=== PATIENT | male | born 1965 | race Caucasian/White ===

== ENCOUNTER 2023-03-06 10:33 | Outpatient (OUT) | payer OTHER, SELFPAY ==
[2023-03-06 11:11] LABS: Basophils Percent Auto 0.6 % (0.2-2.0); Eosinophils Absolute Auto 0.1 10^3/uL (0.0-0.7); Eosinophils Percent Auto 1.1 % (0.9-7.0); Hematocrit 47.2 % (42.0-54.0); Hemoglobin 16.3 g/dL (14.0-18.0); Immature Granulocytes Abs Auto 0.02 10^3/uL (0.00-0.03); Immature Granulocytes Pct Auto 0.3 % (0.0-0.5); Lymphocytes Absolute Auto 1.5 10^3/uL (1.2-3.8); Lymphocytes Percent Auto 20.9 % (20.5-60.0); Mean Corpuscular HGB Conc 34.5 g/dL (29.9-35.2); Mean Corpuscular Hemoglobin 30.8 pg (25.9-34.0); Mean Corpuscular Volume 89.1 fL (80.0-94.0); Monocytes Absolute Auto 0.6 10^3/uL (0.3-0.8); Monocytes Percent Auto 8.1 % (1.7-12.0); Neutrophils Absolute Auto 4.8 10^3/uL (1.4-6.5); Platelet Count 250 10^3/uL (150-450); Red Cell Distribution Width 11.9 % (11.0-15.0)
[2023-03-06 11:39] LABS: Alanine Aminotransferase 53 U/L (16-63); Alkaline Phosphatase 72 U/L (46-116); Anion Gap 12.5; Aspartate Amino Transferase 28 U/L (15-37); BUN Creatinine Ratio 20.6; Bilirubin Total 0.9 mg/dL (0.2-1.0); Calcium 9.6 mg/dL (8.5-10.1); Carbon Dioxide 26.5 mmol/L (21.0-32.0); Chloride 105 mmol/L (98-107); Chol HDL Ratio 3.1; Cholesterol 146 mg/dL (<=200); Estimated GFR (African America >60 (>=60); Estimated GFR (Non-African Ame >60 (>=60); Globulin 3.9 g/dL; Glucose 107 mg/dL (74-106); HDL Cholesterol 47 mg/dL (40-60); LDL Cholesterol Calculated 84.6 mg/dL; Sodium 140 mmol/L (136-145); Total Protein 7.9 g/dL (6.4-8.2); Triglycerides 72 mg/dL (<=150); VLDL CHOLESTEROL 14.4 mg/dL
== END 2023-03-06 10:34 | disposition home or self-care (01) ==
LOC: LAB 10:35
PROVIDERS: PCP Internal Medicine; Visit Provider Internal Medicine
DX: Z00.00 Encounter for general adult medical examination without abnormal findings (principal)
CPT/HCPCS: 36415; 80053; 80061; 85025

== ENCOUNTER 2025-01-18 10:53 | Outpatient (OUT) | payer OTHER, SELFPAY ==
--- NOTE | 2025-01-18 | XR_ITS ---
[address] [address] Patient Name: IRMA HAYES MRN: [id number] date: 1965 Sex: M Assigned Patient Location: RAD Current Patient Location: [facility] Accession/Order Number: [id number] Exam Date: 01/18/2025 11:05 Report Date: 01/18/2025 12:39 At the request of: MICK LEE DO Procedure: XR knee LT 4V 4 views left knee plain film COMPARISON: None HISTORY: Chronic left knee pain ACUTE FINDINGS: No acute findings DEGENERATIVE CHANGE: Unremarkable SOFT TISSUE FINDINGS: Unremarkable JOINT EFFUSION: None POSTOP CHANGES: None BONE MINERALIZATION: Adequate XR/XR knee LT 4V IMPRESSION: No acute findings Impression dictated by: Rusty Lipscomb M.D. 01/18/2025 12:39 PM Dictation Location: [place] [address] Electronically authenticated by: [id number] Y Date: 01/18/2025 12:39
--- OUTSIDE RECORDS SUMMARY | 2025-01-18 11:03 | XMS_ITS | Encounter Summary ---
Author Organization [facility] Address [address] [place] [id number] Care Team Providers Care Entry Level Finance Name Role Phone Michael Preciado DO Primary Care Provider No, Referral Unavailable Unavailable Jaskaran Stratton MD Unavailable [phone] Source Comments In the event this information is protected by the Federal Confidentiality of Alcohol and Drug AbusePatient Records regulations: The Federal rules restrict any use of the information to criminally investigate or prosecute any alcohol or drug abuse patient.[facility] Encounter Details Date Type Department Care Team (Late st Contact Info) Description 12/02/2024 Results Follow-Up Urology [address] [id number] Rachel López APRN.[facility] [address] [place] [address] Social History Tobacco Use Types Packs/Day Years Used Date Smoking Tobacco: Never Smokeless Tobacco: Former Quit: 2006 Alcohol Use Standard Drinks/Week Comments Yes 0 (1 standard drink = 0.6 oz pure alcohol) 3-4 beers/day (stopped 01/17/2017) Overall Financial Resource Strain (CARDIA) Answe r Date Recorded How hard is it for you to pa y for the very basics like food, housing, medical care, and heating? Not hard at all 02/04/2020 PHQ-2 Answer Date Recorded PHQ-2 score 0 11/07/2018 Hunger Vital Sign Answer Date Recorded Within the past 12 months, y ou worried that your food would run out before you got the money to buy more. Never true 02/04/20 20 Within the past 12 months, t he food you bought just didn't last and you didn't have money to get more. Never true 02/04/2020 PRAPARE - Transportation Answer Date Re corded In the past 12 months, has l ack of transportation kept you from medical appointments or from getting medications? No 01/25 In the past 12 months, has l ack of transportation kept you from meetings, work, or from getting things needed for daily living? No 02/04/2020 Area Deprivation Index Answer Date Deondre rded National Score (1-100), lower number is lower ri sk 63 09/27/2022 State Score (1-10), lower number is lower risk 4 09/27/2022 Data from: https://www.neighborhoodatlas.medicine.[facility].edu/. Last address used for calculation [address] [address] 09/27/2022 Sex and Gender Information Value Date Recorded Sex Assigned at Not on file Legal Sex Male 2:00 PM EDT Gender Identity Not on file Sexual Orientation Not on file documented as of this encounter Functional Status * Are you deaf or do you have serious difficulty hearing? Answer Date of Assessment Author No 02/07/2020 1:00 PM EDT Bryant Nova RN * Are you blind or do you have serious difficulty seeing, even when wearing glasses? Answer Date of Assessment Author No 02/07/2020 1:00 PM EDT Bryant Nova RN * Do you have serious difficulty walking or climbing stairs? Answer Date of Assessment Author No 02/07/2020 1:00 PM EDT Bryant Nova RN * Do you have difficulty dressing or bathing? Answer Date of Assessment Author No 02/07/2020 1:00 PM EDT Bryant Nova RN * Because of a physical, mental, or emotional condition, do you have difficulty doing errands alone such as visiting a doctor's office or shopping? Answer Date of Assessment Author No 02/07/2020 1:00 PM EDT Bryant Nova RN documented as of this encounter Mental Status * Because of a physical, mental, or emotional condition, do you have serious difficulty concentrating, remembering, or making decisions? Answer Entry Date Author No 02/07/2020 1:00 PM EDT Bryant Nova RN documented in this encounter Plan of Treatment Upcoming Encounters Date Type Department Care Team (Late st Contact Info) Description 09/07/2025 9:30 AM EDT Office Visit Urology [address] [address] Rachel López APRN.[facility] [address] [place] [address] Prostate Cancer Follow Up documented as of this encounter Goals Goal Patient Goal Type Associated Problems Recent Progress Patient-Stated? Author Blood Pressure < 130/80 Blood Pressure 114/76(2024 2:17 PM EDT) No Jaskaran Stratton MD documented as of this encounter Visit Diagnoses Not on filedocumented in this encounter Care Teams Entry Level Finance Relationship Specialty Start Date End Date Michael Preciado DO PCP - General Internal Medicine 09/29/15 No, Referral Referring 11/03/18 Jaskaran Stratton MD [address] [place] [address] Vascular Medicine 11/07/20 documented as of this encounter
--- OUTSIDE RECORDS SUMMARY | 2025-01-18 11:03 | XMS_ITS | Encounter Summary ---
Author Organization [facility] Address [address] [place], [place] [id number] Care Team Providers Care Hiv Counselor Name Role Phone OzzyMichael Primary Care Provider [phone] No, Referral Unavailable Unavailable Jaskaran Stratton MD Unavailable [phone] Source Comments In the event this information is protected by the Federal Confidentiality of Alcohol and Drug AbusePatient Records regulations: The Federal rules restrict any use of the information to criminally investigate or prosecute any alcohol or drug abuse patient.[facility] Encounter Details Date Type Department Care Team (Late st Contact Info) Description 06/27/2022 [place] [address] Provider, [facility] MRI Screening Questionnaire Completion Required Social History Tobacco Use Types Packs/Day Years [...] (1-100), lower number is lower ri sk Not on file 05/03/2020 State Score (1-10), lower number is lower risk N ot on file 05/03/2020 Data from: https://www.neighborhoodatlas.medicine.[facility].edu/. Last address used for calculation Not on file 05/03/2020 Sex and Gender Information Value Date Recorded [...] 9:30 AM EDT Office Visit Urology [address] [address] Rachel López APRN.[facility] [address] [place] [address] Prostate Cancer Follow Up documented as of this encounter Visit Diagnoses Not on filedocumented in this encounter Care Teams Hiv Counselor Relationship Specialty Start Date End Date Michael Preciado DO PCP - General Internal Medicine 09/29/15 No, Referral Referring 11/03/18 Jaskaran Stratton MD [address] [place] [address] Vascular Medicine 11/07/20 documented as of this encounter
--- OUTSIDE RECORDS SUMMARY | 2025-01-18 11:03 | XMS_ITS | Clinical Summary ---
Author Organization [employer] [facility] Address [id number] [address] [place] [address] Care Team Providers Care Package Line Operator Name Role Phone Michael Preciado Primary Care Provider [phone] Allergies No known active allergies Medications aspirin 81 mg Take 81 mg by mouth daily. Active atorvastatin (LIPITOR) 10 mg tablet Take 10 mg by mouth daily. Active losartan (COZAAR) 25 mg tablet Take 25 mg by mouth daily. Active gabapentin (NEURONTIN) 300 mg capsule Take 300 mg by mouth 3 (three) times a day. Active cyclobenzaprine (FLEXERIL) 5 mg tablet Take 10 mg by mouth 3 (three) times a day as needed for muscle spasms. Active famotidine (PEPCID) 10 mg tablet Take 10 mg by mouth 2 (two) times a day. Active Immunizations Immunization Administration Dates Next Due Tdap 07/18/2021 Social History Tobacco Use Types Packs/Day Years Used Date Smoking Tobacco: Never Smokeless Tobacco: Never Alcohol Use Standard Drinks/Week Comments Yes 0 (1 standard drink = 0.6 oz pur e alcohol) Childcare Answer Date Recorded Childcare Unknown 11/04/2018 Employment Answer Date Recorded Employment Unknown 11/04/2018 Sex and Gender Information Value Date Recorded Sex Assigned at Not on file Legal Sex Male 8:38 PM EDT Gender Identity Not on file Sexual Orientation Not on file Last Filed Vital Signs Vital Sign Reading Time Taken Comments Blood Pressure 136/94 07/18/2021 2:02 PM EST Pulse 121 07/18/2021 2:02 PM EST Temperature 36.6 C (97.8 F) 07/18/2021 2:02 PM EST Respiratory Rate 16 07/18/2021 2:02 PM EST Oxygen Saturation 97% 07/18/2021 2:02 PM EST Inhaled Oxygen Concentration - - Weight 86.2 kg (190 lb) 07/18/2021 2:02 PM EST Height 172.7 cm (5' 8 ) 07/18/2021 2:02 PM EST Body Mass Index 28.89 07/18/2021 2:02 PM EST Plan of Treatment Not on file Medical Devices Not on file Insurance [employer] Care Teams Package Line Operator Relationship Specialty Start Date End Date Michael Preciado DO [address] [place] [id number] PCP - General Internal Medicine 07/18/21
--- OUTSIDE RECORDS SUMMARY | 2025-01-18 11:03 | XMS_ITS | Encounter Summary ---
Author Organization [facility] Address [address] [place], [place] [id number] Care Team Providers Care Supervisor Labor Gang Name Role Phone OzzyMichael Gordon OLMOS Primary Care Provider [phone] No, Referral Unavailable Unavailable Jaskaran Stratton MD Unavailable [phone] Source Comments In the event this information is protected by the Federal Confidentiality of Alcohol and Drug AbusePatient Records regulations: The Federal rules restrict any use of the information to criminally investigate or prosecute any alcohol or drug abuse patient.[facility] Encounter Details Date Type Department Care Team (Late st Contact Info) Description 07/03/2022 Patient Msg [facility] [address] [place] [address] Provider, [facility] appointments Social History Tobacco Use Types Packs/Day Years [...] ot on file 05/03/2020 Data from: https://www.neighborhoodatlas.medicine.[facility]/. Last address used for calculation Not on [...] 9:30 AM EDT Office Visit Urology [address] [address] Rachel López APRN.[facility] [address] [place] [address] Prostate Cancer Follow Up documented as of this encounter Visit Diagnoses Not on filedocumented in this encounter Care Teams Supervisor Labor Gang Relationship Specialty Start Date End Date Michael Preciado DO PCP - General Internal Medicine 09/29/15 No, Referral Referring 11/03/18 Jaskaran Stratton MD [address] [place] [address] Vascular Medicine 11/07/20 documented as of this encounter
--- OUTSIDE RECORDS SUMMARY | 2025-01-18 11:03 | XMS_ITS | Clinical Summary ---
Author Organization [facility] Address [address] [place], [place] [id number] Care Team Providers Care Broke Beater Machine Operator Name Role Phone OzzyMichael Primary Care Provider [phone] No, Referral Unavailable Unavailable Jaskaran Stratton MD Unavailable [phone] Allergies No known active allergies Medications acetaminophen (TYLENOL) 500 mg tablet Take 1,000 mg by mouth every 8 hours as needed. Active aspirin 81 mg chewable tablet Take 1 tablet by mouth once daily. 30 tablet 6 05/14/20 17 Active atorvastatin (LIPITOR) 80 mg tablet Take 1 tablet by mouth daily at bedtime. 30 tablet 6 05/14/20 17 Active cyclobenzaprine (FLEXERIL) 10 mg tablet Take 0.5-1 tablets by mouth twice daily as needed. 60 tablet 5 11/08/19 19 Active losartan (COZAAR) 25 mg tablet Take 25 mg by mouth once daily. Active famotidine (PEPCID) 40 mg tablet Take 40 mg by mouth once daily. 10/14/19 21 Active gabapentin (NEURONTIN) 300 mg capsuleIndication s:Radiculopathy of lumbar region Take 2 capsules by mouth three times daily for 60 days. Patient was titrated up to this dosing per Dr. Islas recommendations. 180 capsule 1 08/02/19 23 Active Additional Information Patient taking differently:600 mg ORAL DIRECTED, Patient was titrated up to this dosing per Dr. Islas recommendations.300mg q a.m. and 600mg q hs, Reason: Dosage Adjustment, Reported on 12/15/2024 meloxicam (MOBIC) 15 mg tablet TAKE ONE TABLET BY MOUTH ONCE DAILY NEEDED 30 tablet 2 11/15/19 23 Active DULoxetine (CYMBALTA) 30 mg capsule Take by mouth every 24 hours. 12/12/19 23 Active sildenafil (VIAGRA) 100 mg tabletIndications :Erectile dysfunction following radical prostatectomy TAKE 1/2 TO 1 TABLET BY MOUTH 30-60 MINUTES PRIOR TO INTERCOURSE ON AN EMPTY STOMACH *NO FOOD OR ALCOHOL. Do not take in combination with prior Cialis prescription 30 tablet 4 12/10/19 24 Active Tadalafil (CIALIS) 20 mg tabletIndications :Erectile dysfunction following radical prostatectomy Take 1 tablet by mouth as needed. 1-2 hours before sexual intercourse. 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 Dissection of carotid artery 01/30/2017 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 Renovascular hypertension 01/29/2017 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 56 Myocardial Infarction Brother 2 Stent Ischemic Heart Disease Brother 3 Stent Ischemic Heart Disease Brother 4 sudd enly, autopsy reported showed blockage, under stress in [employer] unknown Father d. 93 Natural reasons (unknown) Mother d. age 87 Heart Other specifics not kn own, late 30s-40, told she should not have more children, daughter of brother (4) Dementia Sister 1 Fibromyalgia Sister 2 Relation Status Comments Brother 1 Brother 2 Alive Brother 3 Alive Brother 4 Father Mother Other Sister 1 Alive Sister 2 Alive Social History Tobacco Use Types Packs/Day Years Used Date Smoking Tobacco: Never Smokeless Tobacco: Former Quit: 2006 Tobacco Cessation:Counseling Given: Not Answered Alcohol Use Standard Drinks/Week Comments Yes 0 (1 standard drink = 0.6 oz pur e alcohol) occ Overall Financial Resource Strain (CARDIA) Answe r [...] is lower risk 4 09/27/2022 Data from: https://www.neighborhoodatlas.medicine.[facility].edu/. Last address used for calculation [address] 09/27/2022 Sex and Gender Information Value Date Recorded Sex Assigned at Not on file Legal Sex Male 2:00 PM EDT Gender Identity Not on file Sexual Orientation Not on file Last Filed Vital Signs Vital Sign Reading Time Taken Comments Blood Pressure 114/76 12/15/2024 2:17 PM EDT Pulse 106 12/15/2024 2:17 PM EDT Temperature 36.6 C (97.9 F) 12/15/2024 2:17 PM EDT Respiratory Rate 16 12/15/2024 2:17 PM EDT Oxygen Saturation 95% 12/15/2024 2:17 PM EDT Inhaled Oxygen Concentration - - Weight 95 kg (209 lb 7 oz) 12/15/2024 2:17 PM ED T Height 172.7 cm (5' 8 ) 09/02/2024 1:46 PM EDT Body Mass Index 31.84 09/02/2024 1:46 PM EDT Plan of Treatment Upcoming Encounters Date Type Department Care Team (Late st Contact Info) Description 09/07/2025 9:30 AM EDT Office Visit Urology [address] [address] Rachel López APRN.WARRANTY MANAGER [address] [id number] Prostate Cancer Follow Up Health Maintenance Due Date Last Done Comments Annual PCP Team Chronic Dise ase Visit 1981 Anxiety Screening [address] Colonography 2008 Fecal Occult Blood 2008 Sigmoidoscopy 2008 Pneumococcal Vaccine: 50+ (1 of 1 - PCV) 2013 Shingrix Vaccine (1 of 2) 2013 Cologuard (FIT-DNA) 09/22/2021 09/22/2018 Colonoscopy 06/27/2022 06/27/2021 Colorectal Cancer Screening 06/27/2022 Influenza Vaccine (#1) 2025 Diabetes Screening 12/02/2027 12/01/2024, 1 07/17/2021, 02/04/2020, Additional history exists Lipid Screening 12/01/2029 12/01/2024, 12/05/2021, 03/27/2018, Additional history exists Prostate Cancer Screening Discussion 12/01/2029 12/01/2024, 09/02/2024, 06/29/2024, Additional history exists DTaP,Tdap,Td Vaccine (2 - Td or Tdap) 07/18/2031 07/18/2021 RSV Vaccine (1 - 1-dose 75+ series) 2038 Hepatitis C Screening Completed 10/16/2018, 019 HIV Screening Completed 10/17/2018 Goals Goal Patient Goal Type Associated Problems Recent Progress Patient-Stated? Author Blood Pressure < 130/80 Blood Pressure 114/76(2024 2:17 PM EDT) Jaskaran Coy MD Procedures Procedure Name Priority Date/Time Associated Diagnosis Comments LIPID PANEL, FASTING Routine 12/01/2024 9:18 AM EDT Well adult exam CBC + DIFF Routine 12/01/2024 9:18 AM EDT Well adult exam COMPREHENSIVE METABOLIC PANEL Routine 12/01/2024 9:18 AM EDT Well adult exam PSA/PROSTSPECAG DIAG Routine 12/01/2024 9:18 AM EDT Rising PSA following treatment for malignant neoplasm of prostate COLONOSCOPY DIAGNOSTIC Routine 10:55 AM EST BRBPR (bright red blood per rectum) HIV 1/2 COMBO WITH REFLEX TO DIFFERENTIATION Routine 10/17/2018 4:11 AM EDT HEP REMOTE PANEL BL Routine 10/16/2018 3 :54 AM EDT from Last 3 Months or Most Recently Relevant to Health Maintenance Results * PROSTATE-SPECIFIC ANTIGEN DIAGNOSTIC (12/01/2024 9:18 AM EDT) PSA 0.06 <2.60 ng/mL 12/01/2024 8:57 PM EDT [facility] Comment:Total PSA test metho dology used is the Electrochemiluminescence Immunoassay by [employer]. Total PSA values by differing methodologies cannot be interchanged. Blood BLOOD SPECIMEN / Unknown Venipuncture / Unknown 12/01/2024 9:18 AM EDT 12/01/2024 9:18 AM EDT us Rachel Maribel MANAGER PART.WARRANTY MANAGER LABORATORY Final Result [facility] [address] [facility] [address] [place] [address], [place] * (ABNORMAL) LIPID PANEL, FASTING (12/01/2024 9:18 AM EDT) Cholesterol, Total 145 <200 mg/dL 12/01/2024 5:07 PM EDT [facility] Comment: <200 mg/dL, Desirable 200-239 mg/dL, Borderline high >239 mg/dL, High Triglyceride 138 <150 mg/dL 12/01/2024 5:07 PM EDT [facility] Comment: <150 mg/dL, Normal 150-199 mg/dL, Borderline high 200-499 mg/dL, High >499 mg/dL, Very high HDL Cholesterol 39(L) >39 mg/dL 5:07 PM T [facility] Comment: 40-59 mg/dL, Acceptable >59 mg/dL, High: Negative risk factor for coronary heart disease <40 mg/dL, Low: Positive risk factor for coronary heart disease LDL Cholesterol, Calculated 82 <100 mg/dL 12/01/2024 5:07 PM T [facility] Comment: <100 mg/dL, Optimal 100-129 mg/dL, Near optimal/above optimal 130-159 mg/dL, Borderline high 160-189 mg/dL, High >189 mg/dL, Very high Secondary prevention optimal LDL Cholesterol levels are recommended to be <70 mg/dL LDL cholesterol is calculated using the Guzman-NIH equation. Non HDL Cholesterol 106 <130 mg/dL 12/01/2024 5:07 PM EDT [facility] Comment: <130 mg/dL, Optimal 130-159 mg/dL, Near optimal/above optimal 160-189 mg/dL, Borderline high 190-219 mg/dL, High >219 mg/dL, Very high Secondary prevention optimal non HDL Cholesterol levels are recommended to be <100 mg/dL VLDL Cholesterol 21 <30 mg/dL 12/02/19 25 5:07 PM T [facility] TC:HDL Ratio 3.72 <5.10 12/01/2024 5:07 PM EDT [facility] LDL:HDL Ratio 2.10 <2.54 12/01/2024 5:07 PM EDT [facility] Comment: Reference: 1. National Cholesterol Education Program ATP III Guideline At-A-Glance Quick Desk Reference: National Heart, Lung, and Blood [place]anna. National Institutes of Health. 2001: NIH Publication No. 01-3305. 2. An International Atherosclerosis Society position paper: global recommendations for the management of dyslipidemia: executive summary, Atherosclerosis. 2014: 232(2):410-413. Fasting Time 12 hrs 12/01/2024 5:07 PM EDT [facility] Blood BLOOD SPECIMEN / Unknown Venipuncture / Unknown 12/01/2024 9:18 AM EDT 12/01/2024 9:18 AM EDT Michael Preciado DO LABORATORY Final Result [facility] [address] [facility] [address] [place] [address], [facility] [address] [place] [address] * (ABNORMAL) COMPREHENSIVE METABOLIC PANEL (12/01/2024 9:18 AM EDT) Protein, Total 7.5 6.3 - 8.0 g/dL 12/01/2024 11:55 AM EDT [facility] Albumin 4.5 3.9 - 4.9 g/dL 12/01/2024 11:55 AM EDT [facility] Calcium, Total 9.9 8.5 - 10.2 mg/dL 12/01/2024 11:55 AM EDT [facility] Bilirubin, Total 0.9 0.2 - 1.3 mg/dL 12/01/2024 11:55 AM EDT [facility] Alkaline Phosphatase 73 38 - 113 U/L 12/01/2024 11:55 AM EDT [facility] AST 25 14 - 40 U/L 12/01/2024 11:55 AM [facility] ALT 37 10 - 54 U/L 12/01/2024 11:55 AM [facility] Glucose 116(H) 74 - 99 mg/dL 12/01/2024 11:55 AM [facility] Comment: The [place] Diabetes Association (ADA) provides guidance for cutoff values for fasting glucose and random glucose. The ADA defines fasting as no caloric intake for at least 8 hours. Fasting plasma glucose results between 100 to 125 mg/dL indicate increased risk for diabetes (prediabetes). Fasting plasma glucose results greater than or equal to 126 mg/dL meet the criteria for diagnosis of diabetes. In the absence of unequivocal hyperglycemia, results should be confirmed by repeat testing. In a patient with classic symptoms of hyperglycemia or hyperglycemic crisis, random plasma glucose results greater than or equal to 200 mg/dL meet the criteria for diagnosis of diabetes. Reference: Standards of Medical Care in Diabetes 2016, [place] Diabetes Association. Diabetes Care. 2016.39(Suppl 1). BUN 13 9 - 24 mg/dL 12/01/2024 11:55 AM [facility] Creatinine 0.91 0.73 - 1.22 mg/dL 12/01/2024 11:55 AM [facility] Sodium 139 136 - 144 mmol/L 12/01/2024 11:55 AM [facility] Potassium 4.1 3.7 - 5.1 mmol/L 12/01/2024 11:55 AM [facility] Chloride 105 98 - 107 mmol/L 12/01/2024 11:55 AM [facility] CO2 23 22 - 30 mmol/L 12/01/2024 11:55 AM [facility] Anion Gap 11 8 - 15 mmol/L 12/01/2024 11:55 AM [facility] Estimated Glomerular Filtration Rate 96 >=60 mL/min/1. 73m 12/01/2024 11:55 AM [facility] Comment:Estimated Glomerular Filtration Rate (eGFR) is calculated using the 2020 CKD-EPI creatinine equation. This equation utilizes serum creatinine, sex, and age as parameters. The creatinine assay has traceable calibration to isotope dilution- mass spectrometry. Refer to KDIGO guidelines for clinical interpretation. In patients with unstable renal function, e.g. those with acute kidney injury, the eGFR may not accurately reflect actual GFR. Blood BLOOD SPECIMEN / Unknown Venipuncture / Unknown 12/01/2024 9:18 AM EDT 12/01/2024 9:18 AM EDT Michael Preciado DO LABORATORY Final Result [facility] [address] [place] [address] * COMPLETE BLOOD COUNT AND DIFFERENTIAL (12/01/2024 9:18 AM EDT) WBC 6.39 3.70 - 11.00 k/uL 12/01/2024 9:22 AM EDT [facility] RBC 5.41 4.20 - 6.00 m/uL 12/01/2024 9:22 AM EDT [facility] Hemoglobin 16.6 13.0 - 17.0 g/dL 12/01/2024 9:22 AM EDT [facility] Hematocrit 47.5 39.0 - 51.0 % 12/01/2024 9:22 AM EDT [facility] MCV 87.8 80.0 - 100.0 fL 12/01/2024 9:22 AM EDT [facility] MCH 30.7 26.0 - 34.0 pg 12/01/2024 9:22 AM EDT [facility] MCHC 34.9 30.5 - 36.0 g/dL 12/01/2024 9:22 AM EDT [facility] RDW-CV 12.2 11.5 - 15.0 % 12/01/2024 9:22 AM EDT [facility] Platelet Count 214 150 - 400 k/uL 12/01/2024 9:22 AM EDT [facility] MPV 9.5 9.0 - 12.7 fL 12/01/2024 9:22 AM EDT [facility] Neutrophils % 64.0 % 12/01/2024 9:22 AM EDT [facility] Abs Neut 4.09 1.45 - 7.50 k/uL 12/01/2024 9:22 AM EDT [facility] Lymphocytes % 21.6 % 12/01/2024 9:22 AM EDT [facility] Abs Lymph 1.38 1.00 - 4.00 k/uL 12/01/2024 9:22 AM EDT [facility] Monocytes % 10.5 % 12/01/2024 9:22 AM EDT [facility] Abs Ross 0.67 <0.87 k/uL 12/01/2024 9:22 AM EDT [facility] Eosinophils % 2.7 % 12/01/2024 9:22 AM EDT [facility] Abs Eosin 0.17 <0.46 k/uL 12/01/2024 9:22 AM EDT [facility] Basophils % 0.6 % 12/01/2024 9:22 AM EDT [facility] Abs Baso 0.04 <0.11 k/uL 12/01/2024 9:22 AM EDT [facility] Immature Granulocytes % 0.6 % 12/01/2024 9:22 AM EDT [facility] Abs Immature Gran 0.04 <0.10 k/uL 025 9:22 AM EDT [facility] NRBC 0.0 /100 WBC 12/01/2024 9:22 AM EDT [facility] Absolute nRBC <0.01 <0.01 k/uL 12/01/2024 9:22 AM EDT [facility] Diff Type Auto 12/01/2024 9:22 AM EDT [facility] Blood BLOOD SPECIMEN / Unknown Venipuncture / Unknown 12/01/2024 9:18 AM EDT 12/01/2024 9:18 AM EDT Michael Gordon Ozzy [facility] LABORAT[facility] Final Result [facility] [address] [place] [address] * COLONOSCOPY DIAGNOSTIC (06/27/2021 10:55 AM EST) Anatomical Region Laterality Modality Other 06/27/2021 10:5 5 AM EST Narrative 06/27/2021 11:22 AM EST A31 Gastrointestinal Endoscopy Patient Name: Sylvester Burger Procedure Date: 06/27/2021 10:55 AM Date of : 1965 Admit Type: Outpatient Age: 56 Room: [place] [address] Gender: Male Note Status: Finalized Attending MD: Aneudy Douglass MD Procedure: Colonoscopy Indications: Hematochezia Providers: Aneudy Douglass MD Patient Profile: Refer to note in patient chart for documentation of history and physical. Last Colonoscopy: none. The patient's first colonoscopy is today. Referring Physician: Selena Haq NP (Referring MD) Medicines: Midazolam 5 mg IV, Fentanyl 100 micrograms IV Complications: No immediate complications. Requesting Provider: Procedure: Pre-Anesthesia Assessment: - Prior to the procedure, a History and Physical was performed, and patient medications and allergies were reviewed. The patient is competent. The risks and benefits of the procedure and the sedation options and risks were discussed with the patient. All questions were answered and informed consent was obtained. Patient identification and proposed procedure were verified by the physician and the nurse in the pre-procedure area in the procedure room. Mental Status Examination: alert and oriented. Airway Examination: normal oropharyngeal airway and neck mobility. Respiratory Examination: clear to auscultation. CV Examination: normal. Prophylactic Antibiotics: The patient does not require prophylactic antibiotics. Prior Anticoagulants: The patient has taken no previous anticoagulant or antiplatelet agents. ASA Grade Assessment: II - A patient with mild systemic disease. After reviewing the risks and benefits, the patient was deemed in satisfactory condition to undergo the procedure. The anesthesia plan was to use moderate sedation / analgesia (conscious sedation). Immediately prior to administration of medications, the patient was re-assessed for adequacy to receive sedatives. The heart rate, respiratory rate, oxygen saturations, blood pressure, adequacy of pulmonary ventilation, and response to care were monitored throughout the procedure. The physical status of the patient was re-assessed after the procedure. After I obtained informed consent, the scope was passed under direct vision. Throughout the procedure, the patient's blood pressure, pulse, and oxygen saturations were monitored continuously. The Colonoscope was introduced through the anus and advanced to 10 cm into the ileum. The colonoscopy was performed without difficulty. The patient tolerated the procedure well. The quality of the bowel preparation was good. The terminal ileum, the ileocecal valve, the appendiceal orifice and the rectum were photographed. Moderate Sedation: The administration of moderate sedation was initiated at 11:02 AM. Moderate (conscious) sedation was administered by the endoscopy nurse and supervised by the endoscopist. The following parameters were monitored: oxygen saturation, heart rate, blood pressure, and response to care. Findings: The perianal and digital rectal examinations were normal. The colon (entire examined portion) appeared normal. The terminal ileum appeared normal. Impression: - The entire examined colon is normal. - The examined portion of the ileum was normal. - No specimens collected. Estimated Blood Loss: Estimated blood loss: none. Recommendation: - Discharge patient to home (ambulatory). - Resume previous diet. - Continue present medications. - Repeat colonoscopy in 10 years for screening purposes. - Patient has a contact number available for emergencies. The signs and symptoms of potential delayed complications were discussed with the patient. Return to normal activities tomorrow. Written discharge instructions were provided to the patient. Procedure Code(s): --- Professional --- 56279, Colonoscopy, flexible; diagnostic, including collection of specimen(s) by brushing or washing, when performed (separate procedure) Diagnosis Code(s): --- Professional --- K92.1, Melena (includes Hematochezia) CPT copyright 2019 [place] [employer]. All rights reserved. The codes documented in this report are preliminary and upon deckhand review may be revised to meet current compliance requirements. Attending Participation: I personally performed the entire procedure. Scope In: 11:05:03 AM Scope Out: 11:19:25 AM MD Aneudy Gallegos MD 06/27/2021 11:21:51 AM This report has been signed electronically by Aneudy Douglass MD Number of Addenda: 0 Note Initiated On: 06/27/2021 10:55 AM Selena Haq ESTHER.WARRANTY MANAGER DIGESTIVE DISEASE Final Result * HIV 1 2 COMBO(AG/AB),WITH REFLEX TO DIFFERENTIATION (10/17/2018 4:11 AM EDT) HIV 12 Combo (Ag/Ab) Non Reactive Non Reactive 10/17/2018 5:48 PM EDT [facility] HIV 1/2 Ab Confirmatory Test Not Indicated 10/17/2018 5:48 PM EDT [facility] HIV Interpretation Negative 10/17/2018 5:48 PM EDT [facility] Comment: No evidence of HIV-1 or HIV-2 infection. Should recent infection be suspected, repeat testing may be considered 2-3 weeks after this draw. HIV Information: [place] Rev. Code 3701.243(E): This information has been disclosed to you from confidential records protected from disclosure by state law. You shall make no further disclosure of this information without the specific, written, and informed release of the individual to whom it pertains or as otherwise permitted by state law. A general authorization for the release of medical or other information is not sufficient for the purpose of the release of HIV test results or diagnoses. Blood specimen (specimen) BLOOD SPECIMEN / Unknown 10/17/2018 4:11 AM EDT 10/17/2018 4:12 AM EDT Marybeth Ariza MD LABORATORY Final Resu lt [facility] [address] [place] [address] [facility] [address] [place] [address] * HEP REMOTE PANEL BL (10/16/2018 3:54 AM EDT) Hep B Core Ab, Total Negative Negative 10/16/2018 12:58 PM EDT [facility] Hep C Antibody IA Negative Negative 10/16/2018 12:58 PM EDT [facility] HBsAg Negative Negative 10/16/2018 12:58 PM EDT [facility] ManagerComplete Hep B Surface Ab, Qual Negative Negative 10/16/2018 12:58 PM EDT [facility] Comment:NEGATIVE Blood specimen (specimen) BLOOD SPECIMEN / Unknown 10/16/2018 3:54 AM EDT 10/16/2018 3:56 AM EDT us Marybeth Ariza MD LABORATORY Final Resu lt [facility] [address] [place] [address] [facility] ManagerComplete [address] [place] [address] from Last 3 Months or Most Recently Relevant to Health Maintenance Insurance [employer] Care Teams Broke Beater Machine Operator Relationship Specialty Start Date End Date Michael Preciado DO PCP - General Internal Medicine 09/29/15 No, Referral Referring 11/03/18 Jaskaran Stratton MD [address] [place] [address] Vascular Medicine 11/07/20
--- OUTSIDE RECORDS SUMMARY | 2025-01-18 11:03 | XMS_ITS | Encounter Summary ---
Author Organization [facility] Address [address] [id number] Care Team Providers Care Strawberry Grower Name Role Phone Michael Preciado DO Primary Care Provider [phone] No, Referral Unavailable Unavailable Jaskaran Stratton MD Unavailable [phone] Source Comments In the event this information is protected by the Federal Confidentiality of Alcohol and Drug AbusePatient Records regulations: The Federal rules restrict any use of the information to criminally investigate or prosecute any alcohol or drug abuse patient.[facility] Encounter Details Date Type Department Care Team (Late st Contact Info) Description 02/03/2020 Surgical Case HOSP MAIN G090 [address] [id number] Eddie Magallon MD [address] [facility] [address] [place] [address] Social History Tobacco Use Types Packs/Day Years Used Date Smoking Tobacco: Never Smokeless Tobacco: Former Quit: 2006 Alcohol Use Standard Drinks/Week Comments No 0 (1 standard drink = 0.6 oz [...] things needed for daily living? No 02/04/2020 Sex and Gender Information Value Date Recorded Sex Assigned at Not on file Legal Sex Male 2:00 PM EDT Gender Identity Not on file Sexual Orientation Not on file COVID-19 Exposure Response Date Recorded In the last month, have you been in contact with someone who was confirmed or suspected to have Coronavirus / COVID-19? No / Unsure 02/03/2020 10:44 AM EDT documented as of this encounter Functional Status * Are you deaf or do you have serious difficulty hearing? Answer Date of Assessment Author No 10/17/2018 5:26 PM EDT Nhi Fonseca RN * Are you blind or do you have serious difficulty seeing, even when wearing glasses? Answer Date of Assessment Author No 10/17/2018 5:26 PM EDT Nhi Fonseca RN * Do you have serious difficulty walking or climbing stairs? Answer Date of Assessment Author No 10/17/2018 5:26 PM EDT Nhi Fonseca RN * Do you have difficulty dressing or bathing? Answer Date of Assessment Author No 10/17/2018 5:26 PM EDT Nhi Fonseca RN * Because of a physical, mental, or emotional condition, do you have difficulty doing errands alone such as visiting a doctor's office or shopping? Answer Date of Assessment Author No 10/17/2018 5:26 PM EDT Nhi Fonseca RN documented as of this encounter Mental Status * Because of a physical, mental, or emotional condition, do you have serious difficulty concentrating, remembering, or making decisions? Answer Entry Date Author No 10/17/2018 5:26 PM EDT Nhi Fonseca RN documented in this encounter Plan of Treatment Upcoming Encounters Date Type Department Care Team (Late st Contact Info) Description 09/07/2025 9:30 AM EDT Office Visit Urology [address] [id number] Rachel López APRN.[facility] [address] [place] [address] Prostate Cancer Follow Up documented as of this encounter Visit Diagnoses Not on filedocumented in this encounter Care Teams Strawberry Grower Relationship Specialty Start Date End Date Michael Preciado DO PCP - General Internal Medicine 09/29/15 No, Referral Referring 11/03/18 Jaskaran Stratton MD [address] [place] [address] Vascular Medicine 11/07/20 documented as of this encounter
--- OUTSIDE RECORDS SUMMARY | 2025-01-18 11:03 | XMS_ITS | Encounter Summary ---
Author Organization [facility] Address [address] [id number] Care Team Providers Care Band Lining Bander Name Role Phone OzzyMichael Gordon OLMOS Primary Care Provider No, Referral Unavailable Unavailable Jaskaran Stratton MD Unavailable [phone] Source Comments In the event this information is protected by the Federal Confidentiality of Alcohol and Drug AbusePatient Records regulations: The Federal rules restrict any use of the information to criminally investigate or prosecute any alcohol or drug abuse patient.[facility] Encounter Details Date Type Department Care Team (Late st Contact Info) Description 07/09/2022 Patient Msg Spine Spreckels [address] [phone] Provider, Cclupillo Spine Procedure Appointment Social History Tobacco Use Types Packs/Day Years [...] N ot on file 05/03/2020 Data from: https://www.neighborhoodatlas.medicine.[facility]/. Last address used for calculation Not on [...] 9:30 AM EDT Office Visit Urology [address] [address] Rachel López APRN.[employer] [address] [place] [address] Prostate Cancer Follow Up documented as of this encounter Visit Diagnoses Not on filedocumented in this encounter Care Teams Band Lining Bander Relationship Specialty Start Date End Date Michael Preciado DO PCP - General Internal Medicine 09/29/15 No, Referral Referring 11/03/18 Jaskaran Stratton MD [address] [place] [address] Vascular Medicine 11/07/20 documented as of this encounter
--- OUTSIDE RECORDS SUMMARY | 2025-01-18 11:03 | XMS_ITS | Encounter Summary ---
Author Organization [facility] Address [address] [place] [address] Care Team Providers Care Senior Packaging Engineer Name Role Phone OzzyMichael Primary Care Provider No, Referral Unavailable Unavailable Jaskaran Stratton MD Unavailable [phone] Source Comments In the event this information is protected by the Federal Confidentiality of Alcohol and Drug AbusePatient Records regulations: The Federal rules restrict any use of the information to criminally investigate or prosecute any alcohol or drug abuse patient.[facility] Encounter Details Date Type Department Care Team (Late st Contact Info) Description 06/18/2022 Patient Msg Spine Medicine [address] [place] [phone] Vijay Islas, DO [address] [place] [address] MRI lumbar with contrast Social History Tobacco Use Types Packs/Day Years [...] N ot on file 05/03/2020 Data from: https://www.neighborhoodatlas.medicine.[facility].edu/. Last address used for calculation Not on [...] 9:30 AM EDT Office Visit Urology [address] [phone] Rachel López APRN.[address] [address] Prostate Cancer Follow Up documented as of this encounter Visit Diagnoses Not on filedocumented in this encounter Care Teams Senior Packaging Engineer Relationship Specialty Start Date End Date Michael Preciado DO PCP - General Internal Medicine 09/29/15 No, Referral Referring 11/03/18 Jaskaran Stratton MD [address] [place] [address] Vascular Medicine 11/07/20 documented as of this encounter
--- OUTSIDE RECORDS SUMMARY | 2025-01-18 11:03 | XMS_ITS | Clinical Summary ---
Author Organization [facility] Address [address] [facility], [address] [place] [address] Care Team Providers Care Claim Processor Name Role Phone Unavailable Primary Care Provider Unavailabl e Social History Tobacco Use Types Packs/Day Years Used Date Smoking Tobacco: Never Assessed Sex and Gender Information Value Date Recorded Sex Assigned at Not on file Legal Sex Male 2:04 PM EST Gender Identity Not on file Sexual Orientation Not on file Plan of Treatment Not on file Insurance [facility]
--- OUTSIDE RECORDS SUMMARY | 2025-01-18 11:03 | XMS_ITS | Encounter Summary ---
Author Organization [facility] Address [address] [place], [place] [phone] Care Team Providers Care Tax Lawyer Name Role Phone Michael Preciado DO Primary Care Provider [phone] No, Referral Unavailable Unavailable Jaskaran Stratton MD Unavailable [phone] Source Comments In the event this information is protected by the Federal Confidentiality of Alcohol and Drug AbusePatient Records regulations: The Federal rules restrict any use of the information to criminally investigate or prosecute any alcohol or drug abuse patient.[facility] Encounter Details Date Type Department Care Team (Late st Contact Info) Description 07/06/2021 Patient Msg Colorectal Surgery [address] [place] [address] Aneudy Douglass MD [address] [place] [address] blood count Social History Tobacco Use Types Packs/Day Years [...] N ot on file 05/03/2020 Data from: https://www.neighborhoodatlas.medicine.[facility].edu/. Last address used for calculation Not [...] have Coronavirus / COVID-19? No / Unsure 07/05/2021 3:56 PM EST documented as of this encounter Functional Status * Are you deaf or do you have serious difficulty hearing? Answer Date of Assessment Author No 02/07/2020 1:00 PM EDT Braynt Nova RN * Are you blind or [...] 9:30 AM EDT Office Visit Urology [address] [address] Rachel López APRN.[employer] [address] [place] [address] Prostate Cancer Follow Up documented as of this encounter Visit Diagnoses Not on filedocumented in this encounter Care Teams Tax Lawyer Relationship Specialty Start Date End Date Michael Preciado DO PCP - General Internal Medicine 09/29/15 No, Referral Referring 11/03/18 Jaskaran Stratton MD [address] [place] [address] Vascular Medicine 11/07/20 documented as of this encounter
--- OUTSIDE RECORDS SUMMARY | 2025-01-18 11:03 | XMS_ITS | Clinical Summary ---
Author Organization [facility] Address [address] [place] [address] Care Team Providers Care Ultrasound Coordinator Name Role Phone Michael Preciado DO Primary Care Provider [phone] Allergies No known active allergies Medications gabapentin (Neurontin) 300 MG capsule Take 300 mg by mouth 3 (three) times a day. Active aspirin 81 MG EC tablet Take 81 mg by mouth daily. Active atorvastatin (Lipitor) 80 MG tablet Take 1 tablet by mouth Daily 11/07/2023 Active cyclobenzaprine (Flexeril) 10 MG tablet Take 1 tablet by mouth as needed at bedtime 11/07/2023 Active losartan (Cozaar) 25 MG tablet Take 1 tablet by mouth Daily Active famotidine (Pepcid) 40 MG tablet Take 1 tablet by mouth Daily as needed 11/07/2023 Active Active Problems Problem Noted Date Diagnosed Date Degenerative disc disease, cervical 08/14/2023 Osteoarthritis of spine with radiculopathy, lumb ar region 12/04/2022 Low back pain, unspecified 11/14/2022 Numbness 11/14/2022 Tingling 11/14/2022 Weakness 11/14/2022 Right foot drop 11/14/2022 Right leg pain 11/14/2022 History of prostate cancer 09/18/2022 Bulging of lumbar intervertebral disc 09/18/2022 Nicotine use disorder 02/06/2020 Prostate cancer 02/05/2020 History of carotid artery dissection 10/17/2018 Leukopenia 10/17/2018 Transaminitis 10/17/2018 Foraminal stenosis of lumbar region 10/24/2017 Dissection of carotid artery ([facility] 7 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 Fibromuscular dysplasia 01/30/2017 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 Renovascular hypertension 01/29/2017 Immunizations Immunization Administration Dates Next Due Tdap 07/18/2021 Family History Medical History Relation Name Comments Hypertension Mother Cancer Sibling Relation Name Status Comments Father Mother Sibling Social History Tobacco Use Types Packs/Day Years Used Date Smoking Tobacco: Never Smokeless Tobacco: Never Tobacco Cessation:Counseling Given: Not Answered Alcohol Use Standard Drinks/Week Comments Not Currently 0 (1 standard drink = 0.6 oz pur e alcohol) Sex and Gender Information Value Date Recorded Sex Assigned at Not on file Legal Sex Male 8:05 PM EDT Gender Identity Not on file Sexual Orientation Not on file Last Filed Vital Signs Vital Sign Reading Time Taken Comments Blood Pressure 108/75 08/25/2024 8:11 AM EDT Pulse 84 08/25/2024 8:11 AM EDT Temperature - - Respiratory Rate - - Oxygen Saturation - - Inhaled Oxygen Concentration - - Weight 94.8 kg (209 lb) 08/25/2024 8:11 AM EDT Height 172.7 cm (5' 8 ) 08/25/2024 8:11 AM EDT Body Mass Index 31.78 08/25/2024 8:11 AM EDT Plan of Treatment Not on file Insurance [employer] Care Teams Ultrasound Coordinator Relationship Specialty Start Date End Date Michael Preciado DO PCP - General Internal Medicine 08/14/23
== END 2025-01-18 10:54 | disposition home or self-care (01) ==
PROVIDERS: PCP Internal Medicine; Visit Provider Orthopaedic Surgery Orthopaedic Trauma
DX: M25.562 Pain in left knee (principal)
CPT/HCPCS: 73564